=== PATIENT | male | born 1955 | race American Indian/Alaskan Native ===

== ENCOUNTER 2017-07-03 07:21 | Day surgery (SDC) | payer MEDICARE ==
--- NOTE | 2017-06-26 11:21 | Anesthesia Consultation ---
Anesthesia Consult and Med Hx Date of service: 06/26/17 - Airway Anesthetic Teeth Evaluation: Good ROM Head & Neck: Adequate Mental/Hyoid Distance: Adequate Mallampati Class: Class II Intubation Access Assessment: Probably Good - Pulmonary Exam CTA: Yes - Cardiac Exam Cardiac Exam: RRR - Pre-Operative Health Status ASA Pre-Surgery Classification: ASA3 Proposed Anesthetic Plan: General - Pulmonary Hx Smoking: Yes (current, 1/2 PPD) Hx Asthma: No Hx Sleep Apnea: No - Cardiovascular System Hx Hypertension: Yes (x 3 yrs) - Central Nervous System Hx Psychiatric Problems: No - Endocrine Hx Non-Insulin Dependent Diabetes: Yes - Other Systems Hx Cancer: No - Additional Comments Anesthesia Medical History Comments: GLAUCOMA, LEGALLY BLIND
[2017-06-26 11:25] LABS: Hematocrit 35.9 % (35.5-45.6); Hemoglobin 11.9 gm/dl (11.8-15.2); Mean Corpuscular HGB Conc 33 % (32-34); Mean Corpuscular Hemoglobin 29 pg (28-32); Mean Corpuscular Volume 87 fl (84-94); Platelet Count 262 K/mm3 (140-440); Red Blood Count 4.14 M/mm3 (3.65-5.03)
[2017-06-26 11:44] LABS: Calcium 9.2 mg/dL (8.4-10.2); Chloride 103.8 mmol/L (98-107); Potassium 3.8 mmol/L (3.6-5.0)
[2017-06-26 13:32] LABS: Basophils % (Manual) 0 % (0.0-1.8); Blastocytes % (Manual) 0 %; Eosinophils % (Manual) 0 % (0.0-4.3)
[2017-06-26 13:33] LABS: Diff Status Complete; RBC Morphology Normal
[~2017-07-03 07:21] MED LIST: NACL 0.9% 1000 ML 1,000 ML IV SCH; PEPCID PO NR; VERSED IV NR
[2017-07-03] MEDS ORDERED: ANCEF/STERILE WATER 2 GM/20 ML IV NR (09:00)
[2017-07-03] MEDS ORDERED: GARAMYCIN/NS 80 MG/100 ML 100 ML IV NR (09:00)
[2017-07-03] MEDS ORDERED: GARAMYCIN 80 MG in NACL 0.9% 100 ML IV SCH (09:00)
[2017-07-03] MEDS ORDERED: DIPRIVAN 10 MG/ML IV ONE (09:17)
[2017-07-03] MEDS ORDERED: DILAUDID ONE (09:17)
[2017-07-03] MEDS ORDERED: ROBINUL ONE (09:44)
[2017-07-03] MEDS ORDERED: NEO SYNEPHRINE ONE (09:44)
[2017-07-03] MEDS ORDERED: XYLOCAINE MPF 2% ONE (09:44)
[2017-07-03] MEDS ORDERED: NACL 0.9% 100 ML ONE (09:44)
[2017-07-03] MEDS ORDERED: WATER FOR IRRIG STERILE IR ONE (09:45)
[2017-07-03] MEDS ORDERED: ZOFRAN ONE (09:57)
--- NOTE | 2017-07-03 10:11 | Short Stay Summary ---
Short Stay Documentation Date of service: 07/03/17 Narrative H&P: 61 yr old male with elevated psa 28 bx negative in past - History Past Medical History: diabetes, other (legally blind) - Allergies and Medications Current Medications: Allergies No Known Allergies Allergy (Verified 06/27/17 11:59) Home Medications Medication Instructions Recorded Confirmed Last Taken Type Bimatoprost [Lumigan] 1 drop OP QHS 06/27/17 06/27/17 07/03/17 06:45 History Brimonidine/Timolol 0.2-0.5% 1 drops OP Q12H 06/27/17 06/27/17 07/03/17 06:45 History [Combigan 0.2-0.5%] Losartan/Hydrochlorothiazide 1 each PO DAILY 06/27/17 06/27/17 07/02/17 History [Losartan-Hctz 100-25 mg Tab] amLODIPine [Norvasc] 5 mg PO DAILY 06/27/17 06/27/17 07/03/17 06:45 History glipiZIDE [Glipizide] 5 mg PO BID 06/27/17 06/27/17 07/02/17 History metFORMIN [Glucophage] 500 mg PO BID 06/27/17 06/27/17 07/02/17 History Active Medications Cefazolin Sodium (Ancef/Sterile Water 2 Gm/20 Ml) 2 gm IV PREOP NR Stop: 07/03/17 11:00 Famotidine (Pepcid) 20 mg PO PREOP NR Stop: 07/03/17 23:59 Last Admin: 07/03/17 08:48 Dose: 20 mg Sodium Chloride (Nacl 0.9% 1000 Ml) 1,000 mls @ 75 mls/hr IV DIRECT ROSELYN Last Admin: 07/03/17 08:48 Dose: 75 mls/hr Gentamicin Sulfate/Sodium Chloride (Garamycin/Ns 80 Mg/100 Ml) 100 mls @ 200 mls/hr IV PREOP NR Stop: 07/03/17 11:00 Midazolam HCl (Versed) 2 mg IV PREOP NR Stop: 07/03/17 23:59 Last Admin: 07/03/17 08:53 Dose: 2 mg - Physical exam General appearance: no acute distress, well-nourished HEENT: Atraumatic, PERRLA, EOMI Lungs: Clear to auscultation, Normal air movement Heart: Regular rate, No murmurs Gastrointestinal: normal Male Genitourinary: normal Extremities: no ischemia, No edema Neurological: Normal gait - Brief post op/procedure progress note Date of procedure: 07/03/17 Pre-op diagnosis: elevated psa, BPH Post-op diagnosis: same Procedure: cysto, rpg, pus 50cc, bx x 12 Anesthesia: GETA Surgeon: JUDD PARSONS Estimated blood loss: minimal Pathology: list (12 prostate cores) Specimen disposition: to lab Condition: stable - Hospital course Hospital course: cipro & norco on chart (pt has brochure) - Disposition Condition at discharge: Stable Disposition: DC-01 TO HOME OR SELFCARE Short Stay Discharge Plan Follow up with: MOHAN NEVAREZ MD [Primary Care Provider] - 7 Days
[2017-07-03] MEDS ORDERED: NORCO 5/325 PO PRN (10:31)
--- NOTE | 2017-07-03 10:39 | Operative Report ---
PREOPERATIVE DIAGNOSIS: Elevated PSA of 27. POSTOPERATIVE DIAGNOSES: Elevated PSA of 27, BPH. PROCEDURE: Cystoscopy, bilateral retrograde pyelograms, transrectal ultrasound (50 mL) and biopsy of prostate. SURGEON: Peter Lerner MD ANESTHESIA: General. ESTIMATED BLOOD LOSS: Minimal. FLUIDS: Crystalloid. COMPLICATIONS: No complications. INDICATIONS: This patient is a 61-year-old gentleman known to our practice for several years. He had previous prostate ultrasound and biopsy several years ago that was negative for PSA in the 5 to 6 range. Over the years, his PSA has increased. It is now 27 and he presents now for surgical intervention for repeat biopsy. Risks, benefits, and complications were explained. The patient agreed to proceed with surgical intervention. Also, of note, he is legally blind. DESCRIPTION OF PROCEDURE: The patient was taken to the operative suite, placed in a supine position. After adequate general anesthesia, he was placed in a dorsal lithotomy position, prepped and draped in sterile fashion. Pancystourethroscopy was performed with 22-Nigerien Storz cystoscope, no urethral abnormalities. He did display trilobar prostatic obstruction. His bladder no tumors or stones were noted. Both ureteral orifices in normal position. Bilateral retrograde pyelograms were obtained with an 8-Nigerien Hagerman catheter and 8 mL of contrast. There was some J-hooking of the distal ureter. No filling defects or obstruction. Next, using transrectal ultrasound probe ultrasound measurements were taken in 2 planes for total of 50 mL. No hypoechoic areas could be appreciated. A 12-core biopsy was taken at the base, mid, and apex of the prostate. The patient tolerated the procedure well, was extubated and taken to recovery room. He will go home on [employer] and follow up in the office. JOB# [id number] Dulce/ZOE
[2017-07-03 11:37] VITALS: BP 136/93
--- NOTE | 2017-07-03 12:12 | Ultrasound Report ---
ULTRASOUND GUIDE INTRAOPERATIVE History: Prostate biopsy Findings: Transrectal ultrasound guidance was provided by radiology during prostate biopsy by Dr. Lerner. The prostate volume measures 50.2 cc. Please correlate with the procedural report. Impression: Successful ultrasound guided prostate biopsy.
--- NOTE | 2017-07-04 07:35 | Fluoroscopy Report ---
RETROGRADE PYELOGRAM: There is adequate filling of the ureters and intrarenal collecting systems with no filling defects or anatomic abnormalities identified.
== END 2017-07-03 12:05 | disposition home or self-care (01) ==
LOC: OR 07:21
PROVIDERS: ATTEND Urology
DX: C61 Malignant neoplasm of prostate (principal); N41.1 Chronic prostatitis; N40.0 Benign prostatic hyperplasia without lower urinary tract symptoms; E11.9 Type 2 diabetes mellitus without complications; I10 Essential (primary) hypertension; H54.8 Legal blindness, as defined in USA; F17.210 Nicotine dependence, cigarettes, uncomplicated; Z79.84 Long term (current) use of oral hypoglycemic drugs; Z79.899 Other long term (current) drug therapy
CPT/HCPCS: 36415; 55700; 74420; 76998; 80048; 82962; 85007; 85025; 88305; 88344; A4217; C1758; J0690; J1170; J1580; J2250; J2370; J2405; J2704; J7030; Q9967; 88342

== ENCOUNTER 2017-07-21 08:18 | Outpatient (CLI) | payer MEDICARE ==
--- NOTE | 2017-07-21 13:39 | Nuclear Medicine Report ---
BONE SCAN: History: Prostate cancer. Comparison: Noncontrast CT abdomen and pelvis performed the same day. After injection of isotope, gamma camera imaging of the bony system was done. There is a normal uptake of isotope throughout the bony structures without areas of significantly increased or decreased uptake. Normal uptake in the urinary system is seen. Contamination in the perineum is noted. IMPRESSION: No evidence for metastatic disease to the bony structures.
--- NOTE | 2017-07-21 13:41 | Cat Scan Report ---
CT ABDOMEN PELVIS WITHOUT CONTRAST: HISTORY: Prostate cancer. COMPARISON: No previous CT at this facility. Correlation is made with a bone scan performed same day. TECHNIQUE: Helical CT in 1.25mm intervals without IV contrast. Sagittal and coronal reconstructions. FINDINGS: Lung bases: Normal. Liver: Normal. Biliary system: Normal. Pancreas: Normal. Spleen: Normal. Kidneys/ureters/bladder: Normal. Adrenal glands: Normal. Aorta: There are scattered atherosclerotic plaques but no evidence for aneurysm or signs of dissection. Intestines: Normal. Appendix: Normal. Pelvic viscera: The prostate gland is mildly enlarged measuring 6.0 x 4.9 cm in axial plane. Ascites: None. Adenopathy: None. Musculoskeletal: No suspicious lytic or blastic bony lesions. IMPRESSION: Essentially unremarkable CT of the abdomen and pelvis. No evidence for an acute process or metastatic disease. Enlarged prostate gland.
== END 2017-07-21 08:19 | disposition home or self-care (01) ==
LOC: NM 08:18
PROVIDERS: ATTEND Urology
DX: C61 Malignant neoplasm of prostate (principal); N40.0 Benign prostatic hyperplasia without lower urinary tract symptoms; I70.0 Atherosclerosis of aorta; I10 Essential (primary) hypertension; E11.9 Type 2 diabetes mellitus without complications; F17.200 Nicotine dependence, unspecified, uncomplicated
CPT/HCPCS: 74176; 78306; A9503

== ENCOUNTER 2018-01-30 07:47 | Outpatient (CLI) | payer MEDICARE ==
--- NOTE | 2018-01-30 08:42 | Cat Scan Report ---
CT abdomen and pelvis without contrast: Prostate cancer; prostatectomy. Transverse images were obtained from lower chest to the ischium with coronal and sagittal 2-D reformatted images. Comparison made to prior exam in June 2017. The visualized lung bases are clear. The abdominal and retroperitoneal organs are unremarkable except for mild perinephric stranding around both kidneys. The abdominal aorta is normal. There is no periaortic, mesenteric, or pelvic adenopathy identified. The unopacified bowel and mesentery appear normal. No evidence of inflammatory change. Focal hyperdense areas of bone density are identified in T10, T11, T12 and L2. Compared to the prior examination these hyperdense areas are unchanged. There has been interval prostatectomy. Impressions: 1. Stable hyperdense bone foci as described above. Prior bone scan unremarkable and these most likely represent bone islands. 2. Interval prostatectomy. 3. No evidence of soft tissue metastases.
== END 2018-01-30 07:48 | disposition home or self-care (01) ==
LOC: CT 07:47
PROVIDERS: ATTEND Urology
DX: C61 Malignant neoplasm of prostate (principal); R10.31 Right lower quadrant pain; I10 Essential (primary) hypertension; E11.9 Type 2 diabetes mellitus without complications; Z87.891 Personal history of nicotine dependence
CPT/HCPCS: 74176

== ENCOUNTER 2019-04-24 11:03 | Outpatient (CLI) | payer MEDICARE ==
--- NOTE | 2019-04-24 12:06 | Cat Scan Report ---
CT ABDOMEN AND PELVIS WITHOUT CONTRAST HISTORY: R10.31)Right lower quadrant pain. COMPARISON: None. TECHNIQUE: Axial CT images were obtained through the abdomen and pelvis without IV contrast. Sagittal and coronal reformatted images. All CT scans at this location are performed using CT dose reduction for ALARA by means of automated exposure control. FINDINGS: CT ABDOMEN: Lung Bases: Clear. Liver: No significant abnormality. Biliary: No significant abnormality. Spleen: No significant abnormality. Unenlarged. Pancreas: No significant abnormality. Adrenals: No significant abnormality. Kidneys: No significant abnormality. Kidneys are normal size, contour and position. No evidence for c ystic disease, mass, calculus or hydronephrosis. The ureters are normal course and caliber. Lymphatics: No lymphadenopathy. Vasculature: No significant abnormality. Bowel/Peritoneum: No significant abnormality. No free air. No free fluid. Normal appendix. CT PELVIS: : The bladder, distal ureters and prostate gland are unremarkable. Osseous Structures: No significant abnormality. Additional Findings: A small ventral wall defect containing fat with a 2.3 cm neck is identified just superior to the umbilicus. There is nonspecific skin thickening in the right groin region which appe ars to be chronic. This may be related to previous catheterization or surgery. Correlate with history . A cellulitis is less likely but could be considered. IMPRESSION: No acute process. No clear explanation for right lower quadrant pain. Small ventral wall defect containing fat. Nonspecific skin thickening in the right groin region as described. Correlate with the patient's hist ory. Signer Name: Bharath Frye Jr, MD Signed: 04/24/2019 12:01 PM Workstation Name: [id number]
== END 2019-04-24 11:04 | disposition home or self-care (01) ==
LOC: CT 11:03
PROVIDERS: ATTEND Urology
DX: R10.31 Right lower quadrant pain (principal)
CPT/HCPCS: 74176